=== PATIENT | female | born 2000 | race African-American/Black ===

== ENCOUNTER 2019-03-02 17:11 | Emergency (ER) | payer SELFPAY ==
[~2019-03-02] VITALS: Ht 162.6 cm; Wt 117.5 kg
[2019-03-02 17:16] VITALS: Ht 162.6 cm; Wt 117.5 kg
[2019-03-02 18:14] LABS: BASOPHIL % 0.7 % (0-2); PLATELET COUNT 394 x10^3mcL (130-400); RED CELL DISTRIBUTION WIDTH 19.5 % (11.5-14.5)
[2019-03-02 18:15] LABS: CARBON DIOXIDE 21.3 mmol/L (21-32); CHLORIDE SERUM 108 mmol/L (98-107); CREATININE SERUM 0.9 mg/dL (0.6-1.0); GFR1 > 60 mL/min; GLUCOSE SERUM 84 mg/dL (74-106); POTASSIUM SERUM 3.8 mmol/L (3.5-5.1); SODIUM SERUM 141 mmol/L (136-145)
[2019-03-02 18:20] LABS: ALKALINE PHOSPHATASE 123 U/L (46-116); ALT/SGPT 46 U/L (14-59); AST/SGOT 16 U/L (15-37); BILIRUBIN TOTAL 0.25 mg/dL (0.20-1.00); TOTAL PROTEIN, SERUM 7.2 g/dL (6.4-8.2)
[2019-03-02 18:25] LABS: ALBUMIN 3.3 g/dL (3.4-5.0)
[2019-03-02 18:29] LABS: RED BLOOD CELLS 3.93 M/mm3 (4.10-5.10)
[2019-03-02 18:57] LABS: ERYTHROCYTE SED RATE 40 mm/hr (0-20)
[2019-03-02 19:23] VITALS: BP 136/82
== END 2019-03-02 20:12 | disposition home or self-care (01) ==
LOC: EDBD 17:11 → ED 17:11
PROVIDERS: Emergency Medicine
DX: D57.1 Sickle-cell disease without crisis (principal); Z95.0 Presence of cardiac pacemaker
CPT/HCPCS: 83880; 85378; J1200; J2405; J3010; J7030; Q0092

== ENCOUNTER 2019-03-04 03:23 | Emergency (ER) | payer SELFPAY ==
[~2019-03-04] VITALS: Ht 162.6 cm; Wt 116.6 kg
[2019-03-04 03:32] VITALS: Ht 162.6 cm; Wt 116.6 kg
[2019-03-04 06:42] VITALS: BP 128/77
== END 2019-03-04 06:42 | disposition home or self-care (01) ==
LOC: EDBD 03:23 → ED 03:23
DX: D57.1 Sickle-cell disease without crisis (principal); Z88.0 Allergy status to penicillin; Z95.0 Presence of cardiac pacemaker
CPT/HCPCS: J1200; J2270

== ENCOUNTER 2019-03-15 11:05 | Emergency (ER) | payer MEDICAID ==
[~2019-03-15] VITALS: Ht 162.6 cm; Wt 114.3 kg
[2019-03-15 11:12] VITALS: Ht 162.6 cm; Wt 114.3 kg
[2019-03-15 11:51] LABS: BASOPHIL % 0.5 % (0-2); PLATELET COUNT 327 x10^3mcL (130-400)
[2019-03-15 11:53] LABS: RED CELL DISTRIBUTION WIDTH 18.4 % (11.5-14.5)
[2019-03-15 12:03] LABS: CALCIUM 8.9 mg/dL (8.5-10.1); CARBON DIOXIDE 21.8 mmol/L (21-32); CHLORIDE SERUM 108 mmol/L (98-107); CREATININE SERUM 0.8 mg/dL (0.6-1.0); GFR1 > 60 mL/min; GLUCOSE SERUM 90 mg/dL (74-106); SODIUM SERUM 142 mmol/L (136-145)
[2019-03-15 13:20] VITALS: BP 134/65
== END 2019-03-15 13:20 | disposition home or self-care (01) ==
LOC: ED 11:05 → EDBD 11:05 → ED 13:20
PROVIDERS: Emergency Medicine
DX: D57.00 Hb-SS disease with crisis, unspecified (principal)
CPT/HCPCS: J1170; J1200; J2405; J7030; Q0092

== ENCOUNTER 2019-03-18 13:05 | Emergency (ER) | payer MEDICAID ==
[~2019-03-18] VITALS: Ht 162.6 cm; Wt 113.9 kg
[2019-03-18 13:11] VITALS: Ht 162.6 cm; Wt 113.9 kg
[2019-03-18 15:11] LABS: BASOPHIL % 0.7 % (0-2); PLATELET COUNT 267 x10^3mcL (130-400); RED BLOOD CELLS 3.98 M/mm3 (4.10-5.10)
[2019-03-18 15:59] VITALS: BP 147/82
== END 2019-03-18 16:09 | disposition home or self-care (01) ==
LOC: EDBD 13:05 → ED 13:05
PROVIDERS: Emergency Medicine
DX: D57.219 Sickle-cell/Hb-C disease with crisis, unspecified (principal); Z88.0 Allergy status to penicillin; Z98.890 Other specified postprocedural states; Z95.0 Presence of cardiac pacemaker
CPT/HCPCS: J0780; J1200; J3010; J7030

== ENCOUNTER 2019-03-22 03:40 | Emergency (ER) | payer MEDICAID ==
[~2019-03-22] VITALS: Ht 162.6 cm; Wt 86.2 kg
[2019-03-22 03:46] VITALS: Ht 162.6 cm; Wt 86.2 kg
[2019-03-22 04:41] LABS: BASOPHIL % 0.4 % (0-2); PLATELET COUNT 195 x10^3mcL (130-400)
[2019-03-22 04:49] LABS: CALCIUM 8.8 mg/dL (8.5-10.1); CARBON DIOXIDE 23.6 mmol/L (21-32); CHLORIDE SERUM 106 mmol/L (98-107); CREATININE SERUM 0.8 mg/dL (0.6-1.0); GFR1 > 60 mL/min; GLUCOSE SERUM 93 mg/dL (74-106); POTASSIUM SERUM 3.5 mmol/L (3.5-5.1); SODIUM SERUM 139 mmol/L (136-145)
[2019-03-22 04:54] LABS: ALKALINE PHOSPHATASE 103 U/L (46-116); ALT/SGPT 17 U/L (14-59); AST/SGOT 9 U/L (15-37); BILIRUBIN TOTAL 0.17 mg/dL (0.20-1.00); LIPASE 134 IU/L (73-393); TOTAL PROTEIN, SERUM 6.9 g/dL (6.4-8.2)
[2019-03-22 04:57] LABS: ALBUMIN 3.1 g/dL (3.4-5.0)
[2019-03-22 05:10] LABS: RED CELL DISTRIBUTION WIDTH 17.1 % (11.5-14.5)
[2019-03-22 05:16] LABS: RED BLOOD CELLS 3.74 M/mm3 (4.10-5.10)
[2019-03-22 06:03] VITALS: BP 140/78
== END 2019-03-22 06:03 | disposition home or self-care (01) ==
LOC: EDBD 03:40 → ED 03:40
PROVIDERS: Emergency Medicine
DX: D57.00 Hb-SS disease with crisis, unspecified (principal); R10.84 Generalized abdominal pain; R07.81 Pleurodynia; R11.0 Nausea; Z95.0 Presence of cardiac pacemaker; Z88.0 Allergy status to penicillin
CPT/HCPCS: J1630; J2270; J7040; Q0092; Q0163

== ENCOUNTER 2019-04-17 01:05 | Emergency (ER) | payer MEDICAID ==
[~2019-04-17] VITALS: Ht 162.6 cm; Wt 115.7 kg
[2019-04-17 01:10] VITALS: BP 138/78; Ht 162.6 cm; Wt 115.7 kg
== END 2019-04-17 02:29 | disposition left against medical advice (07) ==
LOC: ED 01:05 → EDBD 01:05 → ED 02:29
DX: Z53.21 Procedure and treatment not carried out due to patient leaving prior to being seen by health care provider (principal)

== ENCOUNTER 2019-05-21 19:28 | Emergency (ER) | payer SELFPAY ==
[~2019-05-21] VITALS: Ht 162.6 cm; Wt 107.0 kg
[2019-05-21 19:53] VITALS: Ht 162.6 cm; Wt 107.0 kg
[2019-05-21 20:30] VITALS: BP 133/79
== END 2019-05-21 20:49 | disposition left against medical advice (07) ==
LOC: ED 19:28
DX: M79.10 Myalgia, unspecified site (principal); R11.10 Vomiting, unspecified; R47.9 Unspecified speech disturbances; D57.1 Sickle-cell disease without crisis; Z88.0 Allergy status to penicillin; Z95.0 Presence of cardiac pacemaker